=== PATIENT | male | born 1990 | race Caucasian/White ===

== ENCOUNTER 2018-04-03 01:35 | Emergency (ER) | payer OTHER ==
[~2018-04-03] VITALS: Ht 170.2 cm; Wt 68.0 kg
[2018-04-03 01:35] VITALS: BP 149/99
--- NOTE | 2018-04-03 01:49 | ED.ADGEN ---
Adult General Chief Complaint Chief Complaint " I ve been sick a couple weeks.. but much worse last couple days.. I get allergies... seasonal... but it seems much worse this year.. and now I got the swollen glands..".. " I did have a Strept. test at Urgent care.. it was negative..." ..." I was recently txed for pink eye.. it is much better..." HPI HPI Patient is a 27 year old male who presents with above hx and complaints of rhinorrhea, non-productive cough and cervical adenopathy. No specific history of ill contacts or travel. Patient does have seasonal allergies. Patient does not have a history of asthma but has had significant wheezing with this presentation. Patient noted the cervical adenopathy in the last couple days. Review of Systems Review of Systems Constitutional: Subjective history of fever or chills [] Eyes: Denies change in visual acuity, redness, or eye pain [] HENT: History of nasal congestion , rhinorrhea, sore throat [] Respiratory: Non-productive cough and wheezing. Cardiovascular: No additional information not addressed in HPI [] GI: Denies abdominal pain, nausea, vomiting, bloody stools or diarrhea [] : Denies dysuria or hematuria [] Musculoskeletal: Denies back pain or joint pain [] Integument: Denies rash or skin lesions [] Neurologic: Denies headache, focal weakness or sensory changes [] Endocrine: Denies polyuria or polydipsia [] All other systems were reviewed and found to be within normal limits, except as documented in this note. Family History Family History Non-contributory Current Medications Current Medications Current Medications Medications (Trade) Dose Ordered Sig/Carolynn Start Time Stop Time Status Last Admin Dose Admin Albuterol Sulfate (Ventolin Hfa) 2 puff 1X ONCE 04/03/18 02:30 04/03/18 02:34 DC Azithromycin (Zithromax) 500 mg 1X ONCE 04/03/18 02:30 04/03/18 02:34 DC Prednisone (Prednisone) 20 mg STK-MED ONCE 04/03/18 02:10 04/03/18 02:11 DC Allergies Allergies Allergies Coded Allergies Type Severity Reaction Last Updated Verified No Known Drug Allergies 04/03/18 No Physical Exam Physical Exam Constitutional: Well developed, well nourished, moderatly acute distress, non- toxic appearance. [] HENT: Normocephalic, atraumatic, bilateral external ears normal, oropharynx moist,injected pharynx, no oral exudates, nose swollen turbinates and rhinorrhea. Eyes: PERRLA, EOMI, conjunctiva injected Rt. eye, clear discharge. [] Neck: Normal range of motion, Adenopathy and tenderness, supple, no stridor. [ ] Cardiovascular:Heart rate regular rhythm, no murmur [] Lungs & Thorax: Bilateral breath sounds equal with scattered wheezes on auscultation [] Abdomen: Bowel sounds normal, soft, no tenderness, no masses, no pulsatile masses. [] Skin: Warm, dry, no erythema, no rash. [] Back: No tenderness, no CVA tenderness. [] Extremities: No tenderness, no cyanosis, no clubbing, ROM intact, no edema. [] Neurologic: Alert and oriented X 3, normal motor function, normal sensory function, no focal deficits noted. [] Psychologic: Affect normal, judgement normal, mood normal. [] Current Patient Data Vital Signs Vital Signs Date Time Temp Pulse Resp B/P (MAP) Pulse Ox O2 Delivery O2 Flow Rate FiO2 04/03/18 02:24 100 Room Air EKG EKG [] Radiology/Procedures Radiology/Procedures [] Course & Med Decision Making Course & Med Decision Making Pertinent Labs and Imaging studies reviewed. (See chart for details). Pt. to take Claritin during day. Benadryl at night for congestion and drainage. Pt. take tylenol and ibuprofen for discomfort. Avoid dust if possible. Use MDI two puffs four times a day.. Prednisone 50 x 5 day s. Flonase two sprays daily at night. NS nasal rinses. Zithromax 250 x 5 days. Follow up with primary. Return if any concerns. [] Final Impression Final Impression 1. Bronchitis[] 2. Reactive Airway 3. Seasonal Allergies 4. Conjunctivitis 5. Upper Respiratory Infection Dragon Disclaimer Dragon Disclaimer This electronic medical record was generated, in whole or in part, using a voice recognition dictation system. KENNETH MCLEOD MD Apr 03, 2018 01:49
[2018-04-03] MEDS ORDERED: predniSONE 20 MG TABLET ONE (02:10)
[2018-04-03] MEDS ORDERED: LORA10TA68 PO (02:10)
[2018-04-03] MEDS ORDERED: PRED50TA PO (02:10)
[2018-04-03] MEDS ORDERED: AZIT250T PO (02:10)
[2018-04-03] MEDS ORDERED: FLUT9.9S NS (02:23)
[2018-04-03] MEDS ORDERED: ALBUTEROL SULFATE 8GM INHALER. INH ONE (02:30)
[2018-04-03] MEDS ORDERED: AZITHROMYCIN 250 MG TABLET. PO ONE (02:30)
[2018-04-03] MEDS ORDERED: predniSONE 10 MG TABLET PO ONE (02:30)
== END 2018-04-03 02:35 | disposition home or self-care (01) ==
LOC: ER 01:35
DX: J45.909 Unspecified asthma, uncomplicated (principal); J06.9 Acute upper respiratory infection, unspecified; H10.9 Unspecified conjunctivitis
CPT/HCPCS: 94640; 99283; J0456; J7512; J7613